=== PATIENT | female | born 1975 | race Caucasian/White ===

== ENCOUNTER → 2016-08-27 | Outpatient (CLI) | payer OTHER | LOC: CIMAGING 13:09 | PROVIDERS: ATTEND Nurse Practitioner Obstetrics & Gynecology | DX: Z12.39 Encounter for other screening for malignant neoplasm of breast (principal); N63 Unspecified lump in breast | CPT/HCPCS: 76641-PO ==

== ENCOUNTER → 2017-11-22 | Outpatient (CLI) | payer OTHER | LOC: CIMAGING 08:19 | PROVIDERS: ATTEND Obstetrics & Gynecology | DX: Z12.31 Encounter for screening mammogram for malignant neoplasm of breast (principal); Z80.3 Family history of malignant neoplasm of breast ==

== ENCOUNTER → 2018-02-23 | Outpatient (CLI) | payer OTHER | LOC: CIMAGING 07:20 | PROVIDERS: ATTEND Family Medicine | DX: E04.2 Nontoxic multinodular goiter (principal) | CPT/HCPCS: 76536-PO ==

== ENCOUNTER 2018-06-30 08:58 | Observation (INO) | payer OTHER ==
--- NOTE | 2018-06-30 07:47 | PDHPUP ---
History & Physical Update H&P update statement: This history and physical update is based on an assessment of the patient which was completed after admission or registration (within 24 hours), but prior to the surgery/procedure. H&P update: H&P reviewed & patient examined
[2018-06-30] MEDS ORDERED: DEXAMETHASONE 4 MG/ML VIAL IVP ONE (09:16)
[2018-06-30] MEDS ORDERED: ceFAZolin 2 GM/DEXTROSE 100 ML IV ONE (09:16)
[2018-06-30] MEDS ORDERED: LR 1,000 ML IV ONE (09:17)
[2018-06-30] MEDS ORDERED: MIDAZOLAM 2 MG/2 ML VIAL IVP ONE ×2 (09:39→09:45)
[2018-06-30] MEDS ORDERED: SCOPOLAMINE HYDROBROMIDE 1 MG/3 DAYS PATCH TD ONE ×2 (09:39→09:45)
[2018-06-30] MEDS ORDERED: BACITRACIN ZINC 14.2 GM OINTTUBE TP ONE (09:57)
[2018-06-30] MEDS ORDERED: LIDO/EPI 1% **Not for Epidural 20 ML MDV ONE (09:58)
[2018-06-30] MEDS ORDERED: PROPOFOL/EMULSION 500 MG/50 ML BOTTLE IV ONE ×3 (10:54→12:02)
[2018-06-30] MEDS ORDERED: REMIFENTANIL HCL 1 MG VIAL ONE ×2 (10:54→11:57)
[2018-06-30] MEDS ORDERED: PROPOFOL 200 MG/20 ML VIAL ONE (10:54)
[2018-06-30] MEDS ORDERED: fentaNYL 100 MCG/2 ML INJ ONE ×2 (10:54→13:37)
--- NOTE | 2018-06-30 10:59 | PDANEPAE ---
ANE Past Medical History - Cardiovascular History Hx Hypertension: No Hx Arrhythmias: No Hx Chest Pain: No Hx Coronary Artery / Peripheral Vascular Disease: No Hx CHF / Valvular Disease: No Hx Palpitations: No - Pulmonary History Hx COPD: No Hx Asthma/Reactive Airway Disease: Yes Hx Recent Upper Respiratory Infection: No Hx Oxygen in Use at Home: No Hx Sleep Apnea: No Sleep Apnea Screening Result - Last Documented: Negative Pulmonary History Comment: exercise induced asthma - Neurologic History Hx Cerebrovascular Accident: No Hx Seizures: No Hx Dementia: No - Endocrine History Hx Diabetes: No - Renal History Hx Renal Disorders: No - Liver History Hx Hepatic Disorders: No - Neurological & Psychiatric Hx Hx Neurological and Psychiatric Disorders: No - Cancer History Hx Cancer: No - Congenital Disorder History Hx Congenital Disorders: No - GI History Hx Gastrointestinal Disorders: No - Other Health History Other Health History: none - Chronic Pain History Chronic Pain: Yes - Surgical History Prior Surgeries: none in last 5 yrs. wisdom teeth 15 yrs ago ANE Review of Systems Review of Systems: - Exercise capacity METS (RN): 6 METS ANE Patient History - Allergies Allergies/Adverse Reactions: No Known Allergies Allergy (Verified 06/14/18 14:27) - Home Medications Home Medications: Albuterol [Proventil Inhaler HFA (*)] 1 - 2 puffs IH DAILY PRN 06/14/18 [Last Taken 2 Weeks Ago ~06/16/18] Calcium Carbonate [Oyster Shell Calcium 500 mg (*)] 500 mg PO DAILY 06/14/18 [ Last Taken 1 Week Ago ~06/23/18] - NPO status NPO Since - Liquids (Date): 06/30/18 NPO Since - Liquids (Time): 07:00 NPO Since - Solids (Date): 06/29/18 NPO Since - Solids (Time): 20:00 - Smoking Hx Smoking Status: Never smoked - Family Anes Hx Family Hx Anesthesia Complications: none ANE Labs/Vital Signs - Vital Signs Blood Pressure: 101/76 Heart Rate: 48 Respiratory Rate: 16 O2 Sat (%): 99 Height: 162.56 cm Weight: 58.967 kg ANE Physical Exam - Airway Neck exam: FROM Mallampati Score: Class 1 Mouth exam: normal dental/mouth exam - Pulmonary Pulmonary: clear to auscultation - Cardiovascular Cardiovascular: regular rate and rhythym - ASA Status ASA Status: II ANE Anesthesia Plan Anesthesia Plan: general endotracheal anesthesia
[2018-06-30] MEDS ORDERED: LR 500 ML IV PRN (12:18)
[2018-06-30] MEDS ORDERED: ALBUTEROL 3 ML DEYVIAL IH PRN (12:18)
[2018-06-30] MEDS ORDERED: PHENYLEPHRINE HCL 100 MCG/ML SYR IVP PRN (12:18)
[2018-06-30] MEDS ORDERED: MEPERIDINE 25 MG/0.5 ML AMP IVP PRN (12:18)
[2018-06-30] MEDS ORDERED: DIAZEPAM 5 MG/ML 1 ML SYR IVP PRN (12:18)
[2018-06-30] MEDS ORDERED: fentaNYL 100 MCG/2 ML INJ IVP PRN (12:18)
[2018-06-30] MEDS ORDERED: PROMETHAZINE HCL 25 MG/ML INJ IVP PRN (12:18)
[2018-06-30] MEDS ORDERED: oxyCODONE IR 5 MG TAB PO PRN (12:18)
[2018-06-30] MEDS ORDERED: ACETAMINOPHEN 500 MG TAB PO PRN (12:18)
[2018-06-30] MEDS ORDERED: METOCLOPRAMIDE 10 MG/2 ML VIAL IVP PRN (12:18)
[2018-06-30] MEDS ORDERED: HYDROmorphONE/DILAUDID 2 MG/ML INJ IVP PRN (12:18)
[2018-06-30] MEDS ORDERED: HYDROCODONE/APAP 5/325 TAB PO PRN ×2 (12:18→17:02)
[2018-06-30] MEDS ORDERED: NALOXONE HCL 0.4 MG/ML INJ IVP PRN (12:18)
[2018-06-30] MEDS ORDERED: ONDANSETRON 4 MG/2 ML VIAL IVP PRN (12:18)
[2018-06-30] MEDS ORDERED: LABETALOL HCL 5 MG/ML 20 ML MDV IVP PRN (12:18)
--- NOTE | 2018-06-30 12:57 | POSTOPPROG ---
Post Op Note Date of Operation: 06/30/18 Surgeon: Basilio Winkler Spike Maker: Sam Paniagua Anesthesiologist: Tiffany Bergman Anesthesia: GET(General Endotracheal) Pre-op Diagnosis: right thyroid mass Post-op Diagnosis: right thyroid mass Indication: concerning right thyroid mass Procedure: right thyroid lobectomy Findings: rln and parathyoids preserved Inf/Abcess present in the surg proc area at time of surgery?: No Depth: Organ Space EBL: Minimal Complications: none Drains: Abel Denise (10 fr round drain)
[2018-06-30] MEDS ORDERED: D5W 1/2 NS W/ 20 KCl/L 1,000 ML IV SCH (13:00)
[2018-06-30] MEDS ORDERED: HYDROCODONE/APAP 5/325 TAB ONE (13:12)
--- NOTE | 2018-06-30 13:26 | GOP ---
DATE OF OPERATION: 06/30/2018 SURGEON: Basilio Winkler MD PAINT PREPPER: Sam Paniagua MD. ANESTHESIA: General. PREOPERATIVE DIAGNOSIS: Right thyroid mass. POSTOPERATIVE DIAGNOSIS: Right thyroid mass. PROCEDURE PERFORMED: FINDINGS: SPECIMENS: Right thyroid lobe. ESTIMATED BLOOD LOSS: Minimal. INDICATIONS: The patient is a 42-year-old woman with a right thyroid mass. Needle biopsy was suspic ious for a follicular lesion. She presents for right thyroid lobectomy for definitive diagnosis. DESCRIPTION OF PROCEDURE: Patient was taken to the OR, positively identified, placed on monitors, an d general anesthesia was induced. The neck was prepped and draped in normal sterile fashion. Incisi on was marked along an anterior neck skin crease and infiltrated with 4.5 cc of 1% lidocaine with 1:1 00,000 epinephrine. The skin was then sharply incised. Dissection was then carried down through the platysma. Superior and inferior subplatysmal flaps were then raised and secured with 2-0 silk stay sutures. The strap muscles were then divided in the midline and elevated off the right thyroid lobe. The superior vascular pedicle was isolated, clamped, cut, and ligated with a 2-0 silk stick tie. D issection was carried along the thyroid capsule, tying off for cauterizing vessels as needed. The gl and was rotated medially. The inferior vascular pedicle was cross clamped, divided, and ligated with 2-0 silk. Keller ligament was divided. The patient's gland was mobile enough that I did not have to get in close to the Keller ligament as it was rather lax. The recurrent nerve was left undisturbed. I did not see either of the parathyroid glands. Once the Keller ligament was divided, the gland was swept off the trachea. The isthmus was cross clamped and divided. The stump was then oversewn with 3-0 Vicryl. The specimen was sent for pathologic evaluation. The wound was irrigated with sterile saline. Hemostasis was assured, and at this point a 10-[place] d rain was placed through a separate stab incision and secured with a drain stitch. The wound was clos ed with interrupted 3-0 Vicryl through the strap muscles, 4-0 Monocryl through the platysma and subcu taneous tissues followed by running 5-0 Prolene and a pressure dressing. The case was terminated. T he anesthetic was discontinued. The patient was taken to postop care in good condition having tolera taylor the procedure well. PROCEDURE: Right thyroid lobectomy. COMPLICATIONS: None. /[id number]/MODL
--- NOTE | 2018-06-30 17:05 | SOAPPROG ---
[facility] Progress Note Assessment/Plan: Assessment: pt s/p hemithyroidectomy by Dr. Winkler. DOing well. Pain controlled. plan for D/c tomorrow Plan: 06/30/18 17:04 Objective: Vital Signs Temp Pulse Resp BP Pulse Ox 36.8 C 60 13 101/67 95 06/30/18 16:00 06/30/18 16:00 06/30/18 16:00 06/30/18 16:00 06/30/18 16:00 06/29/18 06/30/18 07/01/18 05:59 05:59 05:59 Intake Total 1540 Output Total 410 Balance 1130 ICD10 Worksheet Patient Problems: Problems Problem Status Onset Thyroid mass Acute - ICD10 Problem Qualifiers (1) Thyroid mass
[2018-06-30] MEDS: ACETAMINOPHEN 325 MG TAB PO PRN (19:36)
[2018-07-01 07:53] VITALS: BP 106/72
[2018-07-01] MEDS: ACETAMINOPHEN 325 MG TAB PO PRN (08:28)
--- NOTE | 2018-07-01 09:30 | PDDCSUM ---
Discharge Summary Discharge Summary: Pt POD #1 s/p right thyroid lobectomy by Dr. Winkler. Doing well. Pain controlled. Voice strong. ALBERTINA drain removed. Dressing replaced. Incision c/d/i Okay for discharge. Follow up in clinic next week.
== END 2018-07-01 10:14 | disposition home or self-care (01) ==
LOC: F3E 08:58
PROVIDERS: ADMIT Otolaryngology; ATTEND Otolaryngology
PROC: 0GTH0ZZ Resection of Right Thyroid Gland Lobe, Open Approach (ICD-10-PCS; principal; 2018-06-30 10:45)
DX: D34 Benign neoplasm of thyroid gland (principal)
CPT/HCPCS: 60220; G0378; J0690; J1100; J2250; J2704; J3010

== ENCOUNTER → 2018-12-06 | Outpatient (CLI) | payer OTHER | LOC: CIMAGING 08:03 ==